=== PATIENT | female | born 1950 | race Caucasian/White ===

== ENCOUNTER 2017-06-30 08:00 | Outpatient (CLI) | payer BC, SELFPAY | END 2017-06-30 08:01 | disposition home or self-care (01) | LOC: BICMAMMO 08:00 | PROVIDERS: ATTEND Internal Medicine | DX: Z12.31 Encounter for screening mammogram for malignant neoplasm of breast (principal); R92.1 Mammographic calcification found on diagnostic imaging of breast | CPT/HCPCS: 77063; 77067; G0202 ==

== ENCOUNTER 2018-07-30 11:27 | Outpatient (CLI) | payer MEDICARE, OTHER | END 2018-07-30 11:28 | disposition home or self-care (01) | LOC: BICMAMMO 11:27 | PROVIDERS: ATTEND Internal Medicine | DX: Z12.31 Encounter for screening mammogram for malignant neoplasm of breast (principal); Z80.3 Family history of malignant neoplasm of breast | CPT/HCPCS: 77063; 77067 ==

== ENCOUNTER 2018-10-15 14:29 | Emergency (ER) | payer MEDICARE, OTHER ==
[2018-10-15] MEDS ORDERED: Ketorolac Tromethamine 30 MG/ML VIAL ONE (15:32)
== END 2018-10-15 16:20 | disposition home or self-care (01) ==
LOC: ERS 14:29
DX: M54.5 Low back pain (principal); M53.3 Sacrococcygeal disorders, not elsewhere classified; I10 Essential (primary) hypertension; E03.9 Hypothyroidism, unspecified; E78.5 Hyperlipidemia, unspecified; F41.9 Anxiety disorder, unspecified; G62.9 Polyneuropathy, unspecified
CPT/HCPCS: 96372; J1885

== ENCOUNTER 2018-11-19 12:16 | Outpatient (CLI) | payer MEDICARE ==
--- NOTE | 2018-11-19 14:21 | MRI ---
LUMBAR SPINE MRI WITHOUT IV CONTRAST: HISTORY: Lumbar radiculopathy. COMPARISON: 11/13/2011. FINDINGS: Multiplanar, multisequence MRI examination of the lumbar spine is performed. Stable disc space narro wing and osteophytosis at T10-T11. At T11-T12, there is a focal somewhat irregular-shaped protrusion with moderate ventral thecal sac co mpression but without jordy cord compression. At T12-L1, there is disk-osteophytosis with mild lateral recess stenosis and moderate left foraminal stenosis. Vertical height loss of L1 is residual from an old compression fracture which was acute on 11/13/2011. At L1-L2, mild to moderate bilateral recess stenosis and foraminal stenosis. At L2-L3, mild to moderate recess and foraminal stenosis bilaterally. At L3-L4, bilateral recess and moderate bilateral foraminal stenosis. At L4-L5, multiple annular fissures with some disk bulging and mild lateral recess and moderate bilat eral foraminal stenosis bilaterally. At L5-S1, mild bilateral foraminal stenosis. 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 Focal irregular disk prot rusion at T11-T12 with ventral thecal sac compression but no jordy cord compression. This area was n ot imaged in the axial plane. If that is a clinical area of concern, followup thoracic spine MRI, wh ich would include axial images of this region, might be of benefit. Old L1 compression fracture. No evidence for acute fracture. POS: [facility]
== END 2018-11-19 12:17 | disposition home or self-care (01) ==
LOC: BICMRI 12:16
DX: M54.16 Radiculopathy, lumbar region (principal); M51.24 Other intervertebral disc displacement, thoracic region; M48.07 Spinal stenosis, lumbosacral region
CPT/HCPCS: 72148

== ENCOUNTER 2019-08-01 10:18 | Outpatient (CLI) | payer MEDICARE ==
--- NOTE | 2019-08-01 14:02 | MMO ---
Bilateral MAMMO Bilat Screen [facility]. CLINICAL HISTORY: Patient is 69 years old and is seen for screening. The patient has no family history of breast cancer. The patient has no personal history of cancer. VIEWS: The views performed were: bilateral craniocaudal with tomosynthesis and bilateral mediolateral oblique with tomosynthesis. FILMS COMPARED: The present examination has been compared to prior imaging studies performed at [facility] on 02/28/2014, 03/08/2015, 06/30/2017 and 07/30/2018. This study has been interpreted with the assistance of computer-aided detection. MAMMOGRAM FINDINGS: There are scattered fibroglandular densities. There are no suspicious masses, suspicious calcifications, or new areas of architectural distortion. IMPRESSION: THERE IS NO MAMMOGRAPHIC EVIDENCE OF MALIGNANCY. A ROUTINE FOLLOW-UP MAMMOGRAM IN 1 YEAR IS RECOMMENDED. THE RESULTS OF THIS EXAM WERE SENT TO THE PATIENT. ACR BI-RADS Category 1 - Negative MAMMOGRAPHY NOTE: 1. A negative mammogram report should not delay a biopsy if a dominant of clinically suspicious mass is present. 2. Approximately 10% to 15% of breast cancers are not detected by mammography. 3. Adenosis and dense breasts may obscure an underlying neoplasm. Reported by: JUNIOR LAW MD Electonically Signed: [id number]
== END 2019-08-01 10:19 | disposition home or self-care (01) ==
LOC: BICMAMMO 10:18
PROVIDERS: ATTEND Internal Medicine
DX: Z12.31 Encounter for screening mammogram for malignant neoplasm of breast (principal)
CPT/HCPCS: 77063; 77067

== ENCOUNTER 2020-05-03 11:56 | Outpatient (CLI) | payer MEDICARE ==
--- NOTE | 2020-05-03 13:49 | MRI ---
Exam: MRI cervical spine without contrast HISTORY: Cervical radiculopathy. Neck pain and headache times many years.. COMPARISON: 10/20/2008. FINDINGS: Overall, there is appropriate T1 marrow signal intensity of the cervical vertebra. Cervical spine ve rtebral body heights are maintained. No fracture. There are type II Modic changes at C4-C5-C6. Visualized brain parenchyma, cervicomedullary junction, cervical cord and the upper thoracic cord hav e a normal size and signal intensity. Spondylolisthesis: 2.2 mm of anterolisthesis of C2 upon C3. 1.6 mm of retrolisthesis of C4 upon C5. No significant STIR hyperintensity to suggest ligamentous injury or vertebral body edema. C2-C3: No significant central canal stenosis or significant foraminal narrowing. There is left facet hypertrophy. C3-C4: Broad-based disc osteophyte complex. There is deformity of the ventral thecal sac and ventral cord. Mild central canal stenosis. No cord signal abnormality. Moderate right and mild left neural foraminal narrowing. C4-C5: Desiccation with a broad-based disc osteophyte complex. Mass effect and deformity of the cervi kim cord. Moderate central canal stenosis. Mild bilateral neural foraminal narrowing due to uncovertebral hypertrophy. C5-C6: Disc desiccation with moderate loss of disc space height. Broad-based disc osteophyte complex with mass effect upon the cervical cord. Moderate central canal stenosis. No cord signal abnormality. Moderate right neural foraminal narrowing due to uncovertebral hypertrophy. Patent left neural foramen. C6-C7: Desiccation with severe loss of disc space height. Broad-based disc osteophyte complex abuts t he thecal sac. Subarachnoid space is effaced. Moderate deformity of the cervical cord. Moderate bilateral neural foramina narrowing. C7-T1: Disc desiccation. No significant central canal stenosis. Right neural foramen is moderately na rrowed. Patent left neural foramen. IMPRESSION: Multilevel degenerative changes of the cervical spine as detailed above. Transcribed Date/Time: 05/03/2020 1:57 PM
== END 2020-05-03 11:57 | disposition home or self-care (01) ==
LOC: BICMRI 11:56
PROVIDERS: ATTEND Nurse Practitioner Family
DX: M47.22 Other spondylosis with radiculopathy, cervical region (principal)
CPT/HCPCS: 72141

== ENCOUNTER 2020-09-27 11:37 | Outpatient (CLI) | payer MEDICARE | END 2020-09-27 11:38 | disposition home or self-care (01) | LOC: BICMAMMO 11:37 | PROVIDERS: ATTEND Internal Medicine | DX: Z12.31 Encounter for screening mammogram for malignant neoplasm of breast (principal) | CPT/HCPCS: 77063; 77067 ==

== ENCOUNTER 2020-10-14 10:21 | Emergency (ER) | payer MEDICARE ==
[2020-10-14] MEDS ORDERED: Metoclopramide HCl 10 MG/2 ML VIAL ONE (11:06)
[2020-10-14] MEDS ORDERED: diphenhydrAMINE 50 MG/ML VIAL ONE (11:06)
[2020-10-14] MEDS ORDERED: Acetaminophen 500 MG TAB ONE (11:06)
== END 2020-10-14 13:08 | disposition home or self-care (01) ==
LOC: ERS 10:21
DX: R51.9 Headache, unspecified (principal); I10 Essential (primary) hypertension; E03.9 Hypothyroidism, unspecified; E78.5 Hyperlipidemia, unspecified; Z79.899 Other long term (current) drug therapy
CPT/HCPCS: 70450; 96365; 96375; J1200; J2765

== ENCOUNTER 2023-04-28 08:36 | Outpatient (CLI) | payer MEDICARE | END 2023-04-28 08:37 | disposition home or self-care (01) | LOC: BICMAMMO 08:36 | PROVIDERS: ATTEND Internal Medicine | DX: Z12.31 Encounter for screening mammogram for malignant neoplasm of breast (principal) | CPT/HCPCS: 77063; 77067 ==

== ENCOUNTER 2025-03-07 13:18 | Outpatient (CLI) | payer MEDICARE | END 2025-03-07 13:19 | disposition home or self-care (01) | LOC: BICRAD 13:18 | PROVIDERS: ATTEND Anesthesiology | DX: M51.16 Intervertebral disc disorders with radiculopathy, lumbar region (principal); M43.16 Spondylolisthesis, lumbar region; M47.26 Other spondylosis with radiculopathy, lumbar region; M41.9 Scoliosis, unspecified | CPT/HCPCS: 72120 ==